=== PATIENT | female | born 1965 | race Caucasian/White ===

== ENCOUNTER 2021-11-27 14:46 | Outpatient (CLI) | payer BC | END 2021-11-27 14:47 | disposition home or self-care (01) | LOC: BURRAD 14:46 | PROVIDERS: ATTEND Physician Assistant | DX: M25.462 Effusion, left knee (principal) ==

== ENCOUNTER 2024-04-07 09:19 | Emergency (ER) | payer BC | END 2024-04-07 09:58 | disposition home or self-care (01) | LOC: BURERS 09:19 | DX: S80.11XA Contusion of right lower leg, initial encounter (principal); I10 Essential (primary) hypertension; E03.9 Hypothyroidism, unspecified; X58.XXXA Exposure to other specified factors, initial encounter; Y93.89 Activity, other specified; Z79.899 Other long term (current) drug therapy | CPT/HCPCS: 99283 ==